=== PATIENT | male | born 1970 | race Caucasian/White ===

== ENCOUNTER 2016-12-03 13:15 | Inpatient (IN) | payer OTHER ==
[2016-12-03 16:48] LABS: Anion Gap 17 mmol/L; BUN/Creatinine Ratio 13.75; Blood Urea Nitrogen 11 mg/dL (9-20); Carbon Dioxide 33 mmol/L (22-30); Chloride 94.2 mmol/L (98-107); Glucose 160 mg/dL (75-100); Sodium 142 mmol/L (137-145)
[2016-12-03 16:50] LABS: Hematocrit 46.1 % (35.5-45.6); Hemoglobin 15.7 gm/dl (11.8-15.2); Mean Corpuscular HGB Conc 34 % (32-34); Mean Corpuscular Hemoglobin 32 pg (28-32); Mean Corpuscular Volume 94 fl (84-94); Platelet Count 307 K/mm3 (140-440); Potassium 2.6 mmol/L (3.6-5.0); Red Cell Distribution Width 13.9 % (13.2-15.2); White Blood Count 5.4 K/mm3 (4.5-11.0)
[2016-12-03] MEDS ORDERED: K-DUR PO ONE (17:10)
--- NOTE | 2016-12-03 17:34 | Emergency Department Report ---
HPI - General Chief Complaint: Extremity Injury, Upper Time Seen by Provider: 12/03/16 17:09 - HPI HPI: Room 5 The patient is a 46-year-old male presenting with a chief complaint of bilateral upper extremity paresthesias. The patient states for the past 5 days she has had intermittent numbness and pain in the bilateral upper extremities. Patient denies nausea vomiting or diarrhea. Patient denies fever or headache. Patient denies any previous episodes of same. Patient denies dysarthria or dysphagia. There is a weakness in both hands. The patient states she's been unable to take any of his medications for diabetes or hypertension the past 4 days. The patient reportedly was on Atacand plus states she has been off of it for the past 3 months Location: Bilateral upper extremities Duration: 4 days Quality: Weakness, numbness, pain Severity: Moderate Modifying factors: [see above] Context: [see above] Mode of transportation: [not driving] ED Past Medical Hx - Past Medical History Hx Hypertension: Yes Hx Diabetes: Yes - Surgical History Past Surgical History?: No - Family History Family history: no significant - Social History Smoking Status: Former Smoker Substance Use Type: None (none since 2010) - Medications Home Medications: Home Medications Medication Instructions Recorded Confirmed Last Taken Type Bisoprolol Fumarate [Zebeta] 2.5 mg PO DAILY 12/03/16 12/03/16 11/29/16 History Candesartan/Hydrochlorothiazid 1 each PO QDAY 12/03/16 12/03/16 11/29/16 History [Atacand Hct 32-12.5 mg] NIFEdipine XL [Procardia Xl] 30 mg PO Q12HR 12/03/16 12/03/16 11/29/16 History metFORMIN [Glucophage] 500 mg PO BID 12/03/16 12/03/16 11/29/16 History ED Review of Systems ROS: Stated complaint: NUMBNESS ARMS AND HANDS Other details as noted in HPI Comment: All other systems reviewed and negative Constitutional: denies: chills, fever Eyes: denies: eye pain, eye discharge, vision change ENT: denies: ear pain, throat pain Respiratory: denies: cough, shortness of breath, wheezing Cardiovascular: denies: chest pain, palpitations Endocrine: no symptoms reported Gastrointestinal: denies: abdominal pain, nausea, diarrhea Genitourinary: denies: urgency, dysuria Musculoskeletal: denies: back pain, joint swelling, arthralgia Skin: denies: rash, lesions Neurological: weakness, numbness, paresthesias. denies: headache Psychiatric: denies: anxiety, depression Hematological/Lymphatic: denies: easy bleeding, easy bruising Physical Exam - Physical Exam Vital Signs: Vital Signs 12/03/16 15:38 Temperature 98.4 F Pulse Rate 68 Respiratory 20 Rate Blood Pressure 188/126 O2 Sat by Pulse 98 Oximetry Physical Exam: GENERAL: The patient is well-developed well-nourished male lying on stretcher not appearing to be in acute distress. [] HEENT: Normocephalic. Atraumatic. Extraocular motions are intact. Patient has moist mucous membranes. NECK: Supple. Trachea midline CHEST/LUNGS: Clear to auscultation. There is no respiratory distress noted. HEART/CARDIOVASCULAR: Regular. There is no tachycardia. There is no gallop rub or murmur. ABDOMEN: Abdomen is soft, nontender. Patient has normal bowel sounds. There is no abdominal distention. SKIN: There is no rash. There is no edema. There is no diaphoresis. NEURO: The patient is awake, alert, and oriented. The patient is cooperative. The patient has no focal neurologic deficits. The patient has normal speech. Cranial nerves II through XII grossly intact, no drift, nike athlete 5+5 bilaterally MUSCULOSKELETAL: There is no evidence of acute injury. 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 Sodium 142 Potassium 2.6 L* Chloride 94.2 L Carbon Dioxide 33 H Anion Gap 17 BUN 11 Creatinine 0.8 Estimated GFR > 60 BUN/Creatinine Ratio 13.75 Glucose 160 H Calcium 9.0 Troponin T < 0.010 - EKG Data -: EKG Interpreted by Me EKG shows normal: sinus rhythm Rate: normal - EKG Data When compared to previous EKG there are: previous EKG unavailable Interpretation: nonspecific ST-T wave riya - Differential Diagnosis hypokalemia, neuropathy Critical care attestation.: If time is entered above; I have spent that time in minutes in the direct care of this critically ill patient, excluding procedure time. ED Disposition Clinical Impression: Hypokalemia, Paresthesia and pain of both upper extremities Disposition: OP ADMITTED IP TO THIS HOSP Is pt being admited?: Yes Does the pt Need Aspirin: Yes Condition: Fair Time of Disposition: 17:39 (hospitalist paged)
--- NOTE | 2016-12-03 17:41 | Admit Criteria Form ---
Admission Criteria Documentation: HYPONATREMIA; HYPERNATREMIA; HYPOKALEMIA; HYPERKALEMIA; HYPOCALCEMIA; HYPERCALCEMIA Clinical Indications for Inpatient Care (Place 'X' for any and all applicable criteria): Ongoing inpatient care may be indicated for ANY ONE of the following [G](1)(2)(3 )(5): [ ]I. Hyponatremia with ANY ONE of the following: [ ]a) Sodium less than 130 mEq/L (mmol/L) (new) (6)(22) [ ]b) Sodium less than 135 mEq/L (mmol/L) with ANY ONE of the following: [ ]i) Severe medical etiology requiring inpatient management (eg, heart failure, hypovolemia) [ ]ii) Altered mental status [ ]iii) Seizures [ ]II. Hypernatremia with ANY ONE of the following: [ ]a) Sodium greater than 155 mEq/L (mmol/L) [ ]b) Sodium greater than 150 mEq/L (mmol/L) with ANY ONE of the following: [ ] i) Altered mental status [ ]ii) Seizures [ ]iii) Severe medical etiology (eg, hypovolemia, diabetes insipidus) [ ]iv) Severe weakness [ ]v) Severe medical etiology (eg, hemolysis, infection, drug overdose) [X ]III. Hypokalemia with ANY ONE of the following: [ ]a) Potassium less than 2.5 mEq/L (mmol/L) despite outpatient and emergency treatment [ X]b) Potassium less than 3.0 mEq/L (mmol/L) with ANY ONE of the following: [ ]i) Weakness [ ]ii) Cardiac abnormality (eg, arrhythmia, conduction disturbance) [ ]iii) Cardiac ischemia [ ]iv) Ileus [ ]v) Ongoing medical cause requiring inpatient management. ( e.g., acute renal wasting, SIADH) [ X]vi) Other severe symptoms [ ] IV. Hyperkalemia with ANY ONE of the following: [ ]a) Potassium greater than 6.5 mEq/L (mmol/L) [ ]b) Potassium greater than 5 mEq/L (mmol/L) with ANY ONE of the following: [ ]i) Severe ECG findings [H] [ ]ii) Acute worsening of renal failure (creatinine greater than 2.5 mg/dL (221 micromoles/L) or significant elevation for age and size) [ ] V. Hypocalcemia with ANY ONE of the following: [ ]a) Calcium less than 7 mg/dL (1.75 mmol/L) despite outpatient and emergency treatment(19) [ ]b) Calcium less than 8 mg/dL (2 mmol/L) with significant symptoms or findings; examples include: [ ]i) Cardiac abnormality (eg, arrhythmia or conduction disturbance) [ ]ii) Altered mental status [ ]iii) Seizures [ ]iv) Breathing difficulty [ ]v) Muscle spasms [ ]. Hypercalcemia with ANY ONE of the following: [ ]a) Calcium greater than 14 mg/dL (3.5 mmol/L) [ ]b) Calcium greater than 12 mg/dL (3 mmol/L) with ANY ONE of the following: [ ]i) Significant dehydration or hypovolemia as indicated by ANY ONE of the following(2): [ ]1. Clinically significant dehydration as indicated by ANY ONE of the following: [ ]A. Acute loss of weight from baseline (5% of body weight in adults, 9% in pediatric patients) [ ]B. Hemodynamic instability [ ]C. Acute renal failure [ ]D. Serum sodium greater than 150 mEq/L (mmol/L) [ ]2) Dehydration that is persistent indicated by ALL of the following: [ ]A. Oral rehydration therapy not tolerated or insufficient to adequately correct dehydration [ ]B. Appropriate intravenous treatment (eg, fluids ) does not readily correct dehydration ie, after 12 to 24 hours of treatment) [ ]ii) Significant symptoms or findings; examples include: [ ]1) Altered mental status [ ]2) Cardiac abnormality (eg, arrhythmia, conduction disturbance) [ ]3) Cardiac abnormality (eg, arrhythmia, conduction disturbance) The original [employer] content created by [employer] has been revised. The portions of the content which have been revised are identified through the use of italic text or in bold, and [facility] has neither reviewed nor approved the modified material. All other unmodified content is copyright [facility] Please see references footnoted in the original [facility] [email or web address] edition 2016 Admission Criteria Met: Yes
[2016-12-03] MEDS: KCL 10MEQ/100ML 10 MEQ/100 ML BAG IV SCH ×4 (18:02→21:19)
[2016-12-03] MEDS ORDERED: NACL 0.9% 1000 ML 1,000 ML ONE (18:09)
[2016-12-03] MEDS ORDERED: NACL 0.9% 1000 ML 1,000 ML IV ONE (18:23)
[2016-12-03 19:00] LABS: Basophils % (Manual) 0 % (0.0-1.8); Blastocytes % (Manual) 0 %
[2016-12-03 19:01] LABS: Anisocytosis 1+; Diff Status Complete; Platelet Estimate Consistent w Auto; Poikilocytosis 1+
[2016-12-03] MEDS ORDERED: KCL 10MEQ/100ML 10 MEQ/100 ML BAG IV ONE (19:01)
[2016-12-03] MEDS ORDERED: KCL IV SCH (21:00)
[2016-12-03] MEDS ORDERED: NACL 0.45% IV SCH (21:00)
[2016-12-03] MEDS ORDERED: DILAUDID IV ONE (23:38)
[2016-12-03] MEDS ORDERED: ZOFRAN IV ONE (23:40)
--- NOTE | 2016-12-03 23:41 | Event Note ---
Date: 12/03/16 See H/p in reports HTN emergency Hypokalemia T2DM
[2016-12-04] MEDS: PROCARDIA XL PO SCH ×3 (00:20→21:43)
[2016-12-04] MEDS: GLUCOPHAGE PO SCH ×3 (00:30→16:59)
--- NOTE | 2016-12-04 00:59 | History and Physical Report ---
CHIEF COMPLAINT: Numbness in both upper extremities for the past 5 days. HISTORY OF PRESENT ILLNESS: A 46-year-old male presents with 5 days of intermittent numbness in both the upper extremities, especially in the hands. No precipitating factors. The patient denies any nausea, vomiting or diarrhea. No fever, no chills, no headaches. Also appears weak in the muscles. Weakness in both hands. Unable to take any medications for diabetes and hypertension for the past 4 days. He has been off Atacand because of the cost for the last three months. Noncompliant with medications. In essence, the patient has weakness and numbness in both upper extremities, especially her hands. No headaches. Numbness and pain in the hands is about 5 on a scale of 1-10. PAST MEDICAL HISTORY: Significant for hypertension and diabetes. CURRENT MEDICATIONS: Zebeta, which is bisoprolol fumarate 2.5 mg daily, Atacand with hydrochlorothiazide 32/12.5 daily, metformin 500 mg twice a day, and nifedipine 30 mg p.o. q.12 hours. PAST SURGICAL HISTORY: None. FAMILY HISTORY: Hypertension. SOCIAL HISTORY: Former smoker. He stopped since 2010. FAMILY HISTORY: Hypertension. REVIEW OF SYSTEMS: CONSTITUTIONAL: Numbness in both the hands and also weakness in both upper and lower extremities. Able to walk. HEENT: No sore throat, no postnasal drip. CARDIOVASCULAR AND RESPIRATORY SYSTEM: No shortness of breath, no chest pain, no palpitations. GASTROINTESTINAL: No nausea, no vomiting, no diarrhea. GENITOURINARY SYSTEM: No dysuria, no flank pain. MUSCULOSKELETAL SYSTEM: Slight muscle weakness present. SKIN: No rashes. CENTRAL NERVOUS SYSTEM: No syncope, no seizures. HEMATOLOGIC/LYMPHATIC SYSTEM: No lymphedema or easy bruising. PSYCHIATRIC: No depression, no suicidal or homicidal ideation. A 14-point review of systems done, essentially negative otherwise. Other than the presenting complaint. PHYSICAL EXAMINATION: GENERAL: Middle-aged male lying in bed comfortably. VITAL SIGNS: Blood pressure is 188/126, temperature is 98.4, pulse is 68, respirations 20. HEENT: Unremarkable. Pupils equal and reactive. NECK: Supple, no lymphadenopathy, no thyromegaly. LUNGS: Clear to auscultation and percussion. Good air entry. CARDIOVASCULAR: S1, S2 heard. No gallop, no murmur, no rub. Apical impulse in left fifth intercostal space and midclavicular line. ABDOMEN: Soft and benign. No hepatosplenomegaly. No guarding, no rigidity. Hernial orifices are normal. EXTREMITIES: Good pedal pulses. No pedal edema. CENTRAL NERVOUS SYSTEM: Alert and oriented x4, nonfocal exam. SKIN: Normal. LABORATORY DATA: Significant for white count of 5400, hemoglobin of 15.7 and hematocrit of 46.1, platelet count of 307,000. Sodium is 142, potassium is 2.6, chloride is 94.2, bicarbonate is 33, BUN and creatinine 11 and 0.8, glucose is 160. EKG shows nonspecific ST-T wave changes. Heart rate of 80 per minute. ASSESSMENT AND PLAN: 1. Hypokalemia. The patient's potassium being given aggressively to supplement the potassium to normal levels. Hypokalemia may be causing the paraesthesias and weakness in both the upper and lower extremities. Hydrochlorothiazide may be contributing to the hypokalemia. 2. Hypertension, uncontrolled hypertensive emergency. Blood pressure medications were adjusted. The patient to be started on losartan 100 instead of Atacand. The patient cannot afford Atacand, which is pending. Losartan should be affordable. Also, continue nifedipine 30 mg b.i.d. Also, I would change the reactive Coreg 12.5 q.12. We will discharge the patient on Coreg 12.5, nifedipine 30 q.12, losartan 100 mg daily, hydrochlorothiazide 25 mg daily, and also potassium 10 mEq daily at the time of discharge. 3. Type 2 diabetes mellitus. Continue metformin and coverage. 4. Deep venous thrombosis prophylaxis, Lovenox 40 mg subcutaneous daily. JOB# [id number] VSM/NTS
[2016-12-04] MEDS: KCL 10MEQ/100ML 10 MEQ/100 ML BAG IV SCH ×4 (02:31→13:05)
[2016-12-04] MEDS: COREG PO SCH ×3 (02:51→21:43)
[2016-12-04 06:03] LABS: Anion Gap 17 mmol/L; BUN/Creatinine Ratio 11.42; Blood Urea Nitrogen 8 mg/dL (9-20); Calcium 7.7 mg/dL (8.4-10.2); Carbon Dioxide 28 mmol/L (22-30); Chloride 101.5 mmol/L (98-107); Glucose 179 mg/dL (75-100); Potassium 3.1 mmol/L (3.6-5.0); Sodium 143 mmol/L (137-145)
[2016-12-04] MEDS: NOVOLOG SUB-Q SCH ×4 (08:33→22:00)
[2016-12-04] MEDS ORDERED: BISOPROLOL FUMARATE 2.5 MG PO SCH (10:00)
[2016-12-04] MEDS ORDERED: HYDROCHLOROTHIAZID PO SCH (10:00)
[2016-12-04] MEDS ORDERED: CANDESARTAN PO SCH (10:00)
[2016-12-04] MEDS ORDERED: COZAAR PO SCH (10:00)
[2016-12-04] MEDS ORDERED: K-DUR PO SCH ×2 (10:00)
[2016-12-04] MEDS ORDERED: HCTZ PO SCH (10:00)
[2016-12-04] MEDS ORDERED: KCL 10MEQ/100ML 10 MEQ/100 ML BAG IV SCH (10:00)
[2016-12-04] MEDS: K-DUR PO SCH (10:56)
[2016-12-04] MEDS: HCTZ PO SCH (10:57)
[2016-12-04] MEDS: COZAAR PO SCH (10:58)
--- NOTE | 2016-12-04 14:09 | Progress Note ---
Assessment and Plan Assessment and plan: Malignant HTN severe hypokalemia, possible endocrine cause or RTA severe dehydration obesity, due to access calorie DM type 2 Plan: manage BP with current meds replace K with KCL po and IV obtain renin, aldosterone level BMP tomorrow cardiac diet, supportive care IV fluid hydration History Interval history: No acute event, denies chest pain c/o nausea, no vomiting c/o b/l hand tingling Hospitalist Physical - Constitutional Vitals: Temp Pulse Resp BP Pulse Ox 97.8 F 69 15 121/82 95 12/04/16 09:10 12/04/16 13:10 12/04/16 13:10 12/04/16 13:10 12/04/16 13:10 General appearance: Present: no acute distress, obese - EENT Eyes: Present: EOM intact - Neck Neck: Present: normal ROM - Respiratory Respiratory effort: normal Respiratory: bilateral: CTA - Cardiovascular Rhythm: regular Heart Sounds: Present: S1 & S2 - Extremities Extremities: no ischemia, No edema Peripheral Pulses: within normal limits - Abdominal General gastrointestinal: non-tender, non-distended - Integumentary Integumentary: Present: warm, dry - Psychiatric Psychiatric: memory intact, no agitated, no depressed - Neurologic Neurologic: no focal deficits, moves all extremities Results - Labs CBC & Chem 7: 12/03/16 16:16 12/04/16 13:15 Labs: Laboratory Last Values WBC 5.4 K/mm3 (4.5-11.0) 12/03/16 16:16 RBC 4.90 M/mm3 (3.65-5.03) 12/03/16 16:16 Hgb 15.7 gm/dl (11.8-15.2) H 12/03/16 16:16 Hct 46.1 % (35.5-45.6) H 12/03/16 16:16 MCV 94 fl (84-94) 12/03/16 16:16 MCH 32 pg (28-32) 12/03/16 16:16 MCHC 34 % (32-34) 12/03/16 16:16 RDW 13.9 % (13.2-15.2) 12/03/16 16:16 Plt Count 307 K/mm3 (140-440) 12/03/16 16:16 Lymph % (Auto) Cook Manager 12/03/16 16:16 Add Manual Diff Complete 12/03/16 16:16 Total Counted 100 12/03/16 16:16 Seg Neutrophils % Cook Manager 12/03/16 16:16 Seg Neuts % (Manual) 34.0 % (40.0-70.0) L 12/03/16 16:16 Band Neutrophils % 0 % 12/03/16 16:16 Lymphocytes % (Manual) 55.0 % (13.4-35.0) H 12/03/16 16:16 Reactive Lymphs % (Man) 0 % 12/03/16 16:16 Monocytes % (Manual) 6.0 % (0.0-7.3) 12/03/16 16:16 Eosinophils % (Manual) 5.0 % (0.0-4.3) H 12/03/16 16:16 Basophils % (Manual) 0 % (0.0-1.8) 12/03/16 16:16 Metamyelocytes % 0 % 12/03/16 16:16 Myelocytes % 0 % 12/03/16 16:16 Promyelocytes % 0 % 12/03/16 16:16 Blast Cells % 0 % 12/03/16 16:16 Nucleated RBC % Not Reportable 12/03/16 16:16 Seg Neutrophils # Man 1.8 K/mm3 (1.8-7.7) 12/03/16 16:16 Band Neutrophils # 0.0 K/mm3 12/03/16 16:16 Lymphocytes # (Manual) 3.0 K/mm3 (1.2-5.4) 12/03/16 16:16 Abs React Lymphs (Man) 0.0 K/mm3 12/03/16 16:16 Monocytes # (Manual) 0.3 K/mm3 (0.0-0.8) 12/03/16 16:16 Eosinophils # (Manual) 0.3 K/mm3 (0.0-0.4) 12/03/16 16:16 Basophils # (Manual) 0.0 K/mm3 (0.0-0.1) 12/03/16 16:16 Metamyelocytes # 0.0 K/mm3 12/03/16 16:16 Myelocytes # 0.0 K/mm3 12/03/16 16:16 Promyelocytes # 0.0 K/mm3 12/03/16 16:16 Blast Cells # 0.0 K/mm3 12/03/16 16:16 WBC Morphology Not Reportable 12/03/16 16:16 Hypersegmented Neuts Not Reportable 12/03/16 16:16 Hyposegmented Neuts Not Reportable 12/03/16 16:16 Hypogranular Neuts Not Reportable 12/03/16 16:16 Smudge Cells Not Reportable 12/03/16 16:16 Toxic Granulation Not Reportable 12/03/16 16:16 Toxic Vacuolation Not Reportable 12/03/16 16:16 Dohle Bodies Not Reportable 12/03/16 16:16 Pelger-Huet Anomaly Not Reportable 12/03/16 16:16 Davis Rods Not Reportable 12/03/16 16:16 Platelet Estimate Consistent w auto 12/03/16 16:16 Clumped Platelets Not Reportable 12/03/16 16:16 Plt Clumps, EDTA Not Reportable 12/03/16 16:16 Large Platelets Not Reportable 12/03/16 16:16 Giant Platelets Not Reportable 12/03/16 16:16 Platelet Satelliting Not Reportable 12/03/16 16:16 Plt Morphology Comment Not Reportable 12/03/16 16:16 RBC Morphology Not Reportable 12/03/16 16:16 Dimorphic RBCs Not Reportable 12/03/16 16:16 Polychromasia Not Reportable 12/03/16 16:16 Hypochromasia Not Reportable 12/03/16 16:16 Poikilocytosis 1+ 12/03/16 16:16 Anisocytosis 1+ 12/03/16 16:16 Microcytosis Not Reportable 12/03/16 16:16 Macrocytosis Not Reportable 12/03/16 16:16 Spherocytes Not Reportable 12/03/16 16:16 Pappenheimer Bodies Not Reportable 12/03/16 16:16 Sickle Cells Not Reportable 12/03/16 16:16 Target Cells Not Reportable 12/03/16 16:16 Tear Drop Cells Not Reportable 12/03/16 16:16 Ovalocytes Not Reportable 12/03/16 16:16 Helmet Cells Not Reportable 12/03/16 16:16 Bañuel[place] Bodies Not Reportable 12/03/16 16:16 [place] Rings Not Reportable 12/03/16 16:16 Elvis Cells Not Reportable 12/03/16 16:16 Bite Cells Not Reportable 12/03/16 16:16 Crenated Cell Not Reportable 12/03/16 16:16 Elliptocytes Not Reportable 12/03/16 16:16 Acanthocytes (Spur) Not Reportable 12/03/16 16:16 Rouleaux Not Reportable 12/03/16 16:16 Hemoglobin C Crystals Not Reportable 12/03/16 16:16 Schistocytes Not Reportable 12/03/16 16:16 Malaria parasites Not Reportable 12/03/16 16:16 Roel Bodies Not Reportable 12/03/16 16:16 Hem Pathologist Commnt No 12/03/16 16:16 Sodium 143 mmol/L (137-145) 12/04/16 05:13 Potassium 3.1 mmol/L (3.6-5.0) L 12/04/16 13:15 Chloride 101.5 mmol/L (98-107) 12/04/16 05:13 Carbon Dioxide 28 mmol/L (22-30) 12/04/16 05:13 Anion Gap 17 mmol/L 12/04/16 05:13 BUN 8 mg/dL (9-20) L 12/04/16 05:13 Creatinine 0.7 mg/dL (0.8-1.5) L 12/04/16 05:13 Estimated GFR > 60 ml/min 12/04/16 05:13 BUN/Creatinine Ratio 11.42 % 12/04/16 05:13 Glucose 179 mg/dL (75-100) H 12/04/16 05:13 POC Glucose 138 (70-105) H 12/04/16 11:19 Hemoglobin A1c 6.9 % (4-6) H 12/04/16 00:26 Calcium 7.7 mg/dL (8.4-10.2) L 12/04/16 05:13 Magnesium 1.7 mg/dL (1.7-2.3) 12/03/16 21:48 Troponin T < 0.010 ng/mL (0.00-0.029) 12/03/16 21:48 Albumin 4.2 g/dL (3.9-5) 12/04/16 10:21 Vitamin B12 603.1 pg/mL (211-911) 12/04/16 10:21 TSH 2.890 mlU/mL (0.270-4.200) 12/04/16 10:21
[2016-12-05] MEDS: GLUCOPHAGE PO SCH ×2 (08:15→16:05)
[2016-12-05] MEDS: COZAAR PO SCH (10:34)
[2016-12-05] MEDS: COREG PO SCH (10:35)
[2016-12-05] MEDS: HCTZ PO SCH (10:35)
[2016-12-05] MEDS: K-DUR PO SCH (10:36)
[2016-12-05] MEDS: PROCARDIA XL PO SCH (10:37)
[2016-12-05 10:48] LABS: Anion Gap 18 mmol/L; BUN/Creatinine Ratio 12.85; Blood Urea Nitrogen 9 mg/dL (9-20); Calcium 8.5 mg/dL (8.4-10.2); Carbon Dioxide 27 mmol/L (22-30); Chloride 96.1 mmol/L (98-107); Glucose 266 mg/dL (75-100); Potassium 3.5 mmol/L (3.6-5.0); Sodium 138 mmol/L (137-145)
[2016-12-05] MEDS: NOVOLOG SUB-Q SCH (13:23)
[2016-12-05 13:28] VITALS: BP 134/90
--- NOTE | 2016-12-05 13:41 | Discharge Summary ---
Providers - Providers Date of Admission: 12/03/16 18:04 Date of discharge: 12/05/16 Attending physician: VIC HAGEN Primary care physician: SOCIAL AND HUMAN SERVICES ASSISTANT Hospitalization Condition: Fair Hospital course: Discharge diagnosis: Malignant HTN severe hypokalemia, replaced Severe dehydration obesity, due to access calorie DM type 2 Disposition: DISCHARGED TO HOME OR SELFCARE Time spent for discharge: 32 minutes Core Measure Documentation - Palliative Care Palliative Care/ Comfort Measures: Not Applicable - Core Measures Any of the following diagnoses?: none Exam - Physical Exam Narrative exam: General appearance: Present: no acute distress, obese - EENT Eyes: Present: EOM intact - Neck Neck: Present: normal ROM - Respiratory Respiratory effort: normal Respiratory: bilateral: CTA - Cardiovascular Rhythm: regular Heart Sounds: Present: S1 & S2 - Extremities Extremities: no ischemia, No edema Peripheral Pulses: within normal limits - Abdominal General gastrointestinal: non-tender, non-distended - Integumentary Integumentary: Present: warm, dry - Psychiatric Psychiatric: memory intact, no agitated, no depressed - Neurologic Neurologic: no focal deficits, moves all extremities - Constitutional Vitals: Temp Pulse Resp BP Pulse Ox 98.3 F 80 20 134/90 96 12/05/16 11:55 12/05/16 11:55 12/05/16 11:55 12/05/16 11:55 12/05/16 11:55 Plan Activity: advance as tolerated Weight Bearing Status: Weight Bear as Tolerated Diet: low cholesterol, low salt Follow up with: PRIMARY CARE, [Primary Care Provider] - 3-5 Days Prescriptions: Bisoprolol Fumarate [Zebeta] 2.5 mg PO DAILY #30 tablet Candesartan/Hydrochlorothiazid [Atacand Hct 32-12.5 mg] 1 each PO QDAY #30 tablet Gabapentin [Neurontin] 100 mg PO Q8HR #90 capsule metFORMIN [Glucophage] 500 mg PO BID #60 tablet NIFEdipine XL [Procardia Xl] 30 mg PO Q12HR #60 tablet
[2016-12-05] MEDS ORDERED: FLUARIX QUAD 2016-2017(36 MOS+) IM ONE (13:56)
[2016-12-05] MEDS ORDERED: NEURONTIN PO SCH (14:00)
[2016-12-06] MEDS ORDERED: ZESTRIL PO SCH (10:00)
[2016-12-06] MEDS ORDERED: COZAAR PO SCH (10:00)
== END 2016-12-05 17:00 | disposition home or self-care (01) | DRG 641 ==
LOC: ED 13:15 → 4A 18:04
PROVIDERS: ADMIT Internal Medicine; ATTEND Internal Medicine
DX: E87.6 Hypokalemia (principal); I16.1 Hypertensive emergency; I10 Essential (primary) hypertension; E11.9 Type 2 diabetes mellitus without complications; Z87.891 Personal history of nicotine dependence; Z91.14 Patient's other noncompliance with medication regimen; Z82.49 Family history of ischemic heart disease and other diseases of the circulatory system; Z23 Encounter for immunization; E86.0 Dehydration; E66.9 Obesity, unspecified; Z68.38 Body mass index [BMI] 38.0-38.9, adult
CPT/HCPCS: 36415; 80048; 82040; 82088; 82330; 82607; 82962; 83036; 83735; 84132; 84244; 84443; 84484; 85007; 85025; 90686; 93005; 93010; 96361; 96374; 96375; J1170; J1815; J2405; J3480; J7030